=== PATIENT | female | born 1950 ===

== ENCOUNTER 2021-03-02 20:43 | Inpatient (IN) ==
[2021-03-02] MEDS ORDERED: SODIUM CHLORIDE 0.9% 1,000 ML IV STA (21:44)
[2021-03-02 22:57] LABS: Basophils % 0.2 % (0.0-0.8); Eosinophils % 0.5 % (0.00-10.9); Hematocrit 30.8 VOL% (35.7-47.0); Immature Granulocytes % 0.9 %; Immature Granulocytes Absolute 0.05 #; Lymphocytes # 0.4 10*3/uL (1.4-4.0); Lymphocytes % 7.3 % (21.3-54.2); Mean Corpuscular HGB Conc 32.5 GM/DL (32-36); Mean Corpuscular Volume 93.1 FL (87-102); Mean Platelet Volume 8.6 FL (9.6-12.0); Monocytes % 10.6 % (1.7-12.7); Neutrophils % 80.5 % (38.7-73.9); Platelet Count 252 T/CUMM (130-400); Red Blood Count 3.31 MC/CUMM (3.8-5.5); Red Cell Distribution Width 13.2 % (9.3-17.3); White Blood Count 5.9 T/CUMM (4-12)
[2021-03-02 23:30] LABS: Albumin 1.3 G/DL (3.4-5.0); Bilirubin,Total 0.5 MG/DL (0.2-1.0); Calcium 7.3 MG/DL (8.5-10.1); Osmolality,Calculated 262.2 MOS/KG (273-304); Potassium 5.2 MMOL/L (3.5-5.1); Total Protein 5.7 G/DL (6.4-8.2)
[2021-03-03 00:03] LABS: Sedimentation Rate-Westergren 77 MM/HR (0-30)
[2021-03-03 00:12] LABS: Eosinophils 1 % (0-10); Lymphocytes 2 % (20-55); Platelet Estimate Normal; Segmented Neutrophils 91 % (50-85); Total Cells Counted 100
[2021-03-03 00:13] LABS: Microcytosis Slight
[2021-03-03] MEDS ORDERED: GLUCAGON 1 MG VIAL IM PRN ×2 (00:14)
[2021-03-03] MEDS ORDERED: guaiFENesin/DM ER 600-30 MG TABLET PO PRN (00:14)
[2021-03-03] MEDS ORDERED: ZALEPLON 5 MG CAPSULE PO PRN (00:14)
[2021-03-03] MEDS ORDERED: ONDANSETRON 4 MG/2 ML VIAL IV PRN (00:14)
[2021-03-03] MEDS ORDERED: MORPHINE 4 MG/1 ML VIAL IV PRN (00:14)
[2021-03-03] MEDS ORDERED: ACETAMINOPHEN 325 MG TABLET PO PRN (00:14)
[2021-03-03] MEDS ORDERED: diphenhydrAMINE CAP 25 MG CAPSULE PO PRN (00:14)
[2021-03-03] MEDS ORDERED: hydrALAZINE 20 MG/1 ML VIAL IV PRN (00:14)
[2021-03-03] MEDS ORDERED: DEXTROSE 50% 25 GM/50 ML VIAL IV PRN ×2 (00:14)
[2021-03-03] MEDS ORDERED: DOCUSATE SODIUM 100 MG CAPSULE PO PRN (00:14)
[2021-03-03] MEDS ORDERED: NICOTINE 21 MG/24 HR PATCH TRANSDERM PRN (00:14)
[2021-03-03] MEDS: CEFEPIME 1,000 MG in SODIUM CHLORIDE 0.9% 100 ML IV SCH ×4 (00:19→23:31)
[2021-03-03] MEDS: CLINDAMYCIN INJ 600 MG/50 ML PREMIX IV SCH ×2 (01:30→08:33)
[2021-03-03] MEDS: SODIUM CHLORIDE 0.9% 1,000 ML IV SCH ×2 (03:09→18:05)
[2021-03-03] MEDS: VANCOMYCIN INJ 1,000 MG in SODIUM CHLORIDE 0.9% 250 ML IV SCH (03:18)
[2021-03-03 05:21] LABS: Basophils % 0.4 % (0.0-0.8); Eosinophils % 0.6 % (0.00-10.9); Hematocrit 32.4 VOL% (35.7-47.0); Hemoglobin 10.7 GM/DL (12.0-16.0); Immature Granulocytes % 1.1 %; Immature Granulocytes Absolute 0.05 #; Lymphocytes # 0.4 10*3/uL (1.4-4.0); Lymphocytes % 8.4 % (21.3-54.2); Mean Corpuscular Volume 92.6 FL (87-102); Mean Platelet Volume 8.7 FL (9.6-12.0); Monocytes % 11.6 % (1.7-12.7); Neutrophils % 77.9 % (38.7-73.9); Platelet Count 248 T/CUMM (130-400); Red Cell Distribution Width 13.2 % (9.3-17.3); White Blood Count 4.7 T/CUMM (4-12)
[2021-03-03 05:44] LABS: Band Neutrophils 1 % (0-10); Eosinophils 1 % (0-10); Lymphocytes 6 % (20-55); Microcytosis 1+; Platelet Estimate Adequate; Segmented Neutrophils 87 % (50-85); Total Cells Counted 100
[2021-03-03 05:51] LABS: Calcium 7.4 MG/DL (8.5-10.1); Osmolality,Calculated 266.8 MOS/KG (273-304); Potassium 5.4 MMOL/L (3.5-5.1)
[2021-03-03] MEDS ORDERED: SODIUM POLYSTYRENE SULFATE 15 GM/60 ML BOTTLE PO ONE (06:18)
[2021-03-03] MEDS ORDERED: SODIUM POLYSTYRENE SULFATE 15 GM/60 ML BOTTLE PO SCH (08:00)
[2021-03-03] MEDS: PANTOPRAZOLE 40 MG TABLET PO SCH (08:34)
[2021-03-03] MEDS: ENOXAPARIN 40 MG/0.4 ML SYRINGE SUBCUT SCH (09:22)
[2021-03-03] MEDS: INSULIN LISPRO 100 UNIT/ML SUBCUT SCH ×4 (10:06→21:47)
[2021-03-04] MEDS: VANCOMYCIN INJ 1,000 MG in SODIUM CHLORIDE 0.9% 250 ML IV SCH (01:16)
[2021-03-04 05:23] LABS: Basophils % 0.3 % (0.0-0.8); Eosinophils % 1.2 % (0.00-10.9); Hematocrit 30.4 VOL% (35.7-47.0); Immature Granulocytes % 1.5 %; Immature Granulocytes Absolute 0.05 #; Lymphocytes # 0.5 10*3/uL (1.4-4.0); Lymphocytes % 14.6 % (21.3-54.2); Mean Corpuscular HGB Conc 32.9 GM/DL (32-36); Mean Platelet Volume 8.6 FL (9.6-12.0); Monocytes % 17.5 % (1.7-12.7); Neutrophils % 64.9 % (38.7-73.9); Platelet Count 227 T/CUMM (130-400); Red Blood Count 3.27 MC/CUMM (3.8-5.5); Red Cell Distribution Width 13.2 % (9.3-17.3); White Blood Count 3.4 T/CUMM (4-12)
[2021-03-04 05:43] LABS: Calcium 7.4 MG/DL (8.5-10.1); Osmolality,Calculated 279.8 MOS/KG (273-304); Potassium 4.5 MMOL/L (3.5-5.1)
[2021-03-04 06:16] LABS: Eosinophils 2 % (0-10); Hypochromasia Slight; Lymphocytes 13 % (20-55); Microcytosis Slight; Platelet Estimate Adequate; Segmented Neutrophils 67 % (50-85); Total Cells Counted 100
[2021-03-04] MEDS: INSULIN LISPRO 100 UNIT/ML SUBCUT SCH ×4 (08:47→20:20)
[2021-03-04] MEDS: PANTOPRAZOLE 40 MG TABLET PO SCH (08:47)
[2021-03-04] MEDS: ENOXAPARIN 40 MG/0.4 ML SYRINGE SUBCUT SCH (08:49)
[2021-03-04] MEDS: CEFEPIME 1,000 MG in SODIUM CHLORIDE 0.9% 100 ML IV SCH ×3 (08:49→23:30)
[2021-03-04] MEDS: SODIUM CHLORIDE 0.9% 1,000 ML IV SCH ×3 (08:51→22:36)
[2021-03-04] MEDS ORDERED: BUPIVACAINE MPF 0.25% 30 ML VIAL ONE (11:41)
[2021-03-04] MEDS ORDERED: LIDOCAINE 1%/EPI INJ 20 ML VIAL ONE (11:41)
[2021-03-04] MEDS ORDERED: LACTATED RINGERS 1,000 ML IV SCH (12:00)
[2021-03-04] MEDS ORDERED: ONDANSETRON 4 MG/2 ML VIAL ONE (12:31)
[2021-03-04] MEDS ORDERED: PHENYLEPHRINE 1 MG/10 ML SYRINGE IV ONE (12:31)
[2021-03-04] MEDS ORDERED: fentaNYL 100 MCG/2 ML VIAL ONE (12:31)
[2021-03-04] MEDS ORDERED: SEVOFLURANE 1 UNIT/15 MINUTE INH ONE (12:31)
[2021-03-04] MEDS ORDERED: LIDOCAINE 2% 5 ML VIAL ONE (12:31)
[2021-03-04] MEDS ORDERED: propofoL 200 MG/20 ML VIAL IV ONE (12:31)
[2021-03-04] MEDS ORDERED: HYDROmorphone 2 MG/1 ML VIAL ONE (13:09)
[2021-03-04] MEDS: HYDROmorphone 2 MG/1 ML VIAL IV PRN ×4 (13:10→13:25)
[2021-03-04] MEDS ORDERED: ONDANSETRON 4 MG/2 ML VIAL IV PRN (13:17)
[2021-03-04] MEDS: SIMVASTATIN 40 MG TABLET PO SCH (20:21)
[2021-03-05 00:52] LABS: Basophils % 0.4 % (0.0-0.8); Eosinophils % 0.4 % (0.00-10.9); Hematocrit 32.2 VOL% (35.7-47.0); Hemoglobin 10.2 GM/DL (12.0-16.0); Immature Granulocytes % 1.7 %; Immature Granulocytes Absolute 0.08 #; Lymphocytes # 0.5 10*3/uL (1.4-4.0); Lymphocytes % 9.5 % (21.3-54.2); Mean Corpuscular HGB Conc 31.7 GM/DL (32-36); Mean Corpuscular Volume 94.4 FL (87-102); Mean Platelet Volume 8.5 FL (9.6-12.0); Monocytes % 12.6 % (1.7-12.7); Neutrophils % 75.4 % (38.7-73.9); Platelet Count 206 T/CUMM (130-400); Red Blood Count 3.41 MC/CUMM (3.8-5.5); Red Cell Distribution Width 13.3 % (9.3-17.3); White Blood Count 4.8 T/CUMM (4-12)
[2021-03-05 01:05] LABS: Calcium 7.6 MG/DL (8.5-10.1); Osmolality,Calculated 280.5 MOS/KG (273-304); Potassium 4.4 MMOL/L (3.5-5.1)
[2021-03-05] MEDS: VANCOMYCIN INJ 1,000 MG in SODIUM CHLORIDE 0.9% 250 ML IV SCH (01:30)
[2021-03-05 01:38] LABS: Band Neutrophils 3 % (0-10); Eosinophils 1 % (0-10); Lymphocytes 9 % (20-55); Metamyelocytes 1 %; Segmented Neutrophils 81 % (50-85); Total Cells Counted 100
[2021-03-05 01:39] LABS: Hypochromasia 1+; Platelet Estimate Normal
[2021-03-05] MEDS: INSULIN LISPRO 100 UNIT/ML SUBCUT SCH ×4 (08:18→19:59)
[2021-03-05] MEDS: ENOXAPARIN 40 MG/0.4 ML SYRINGE SUBCUT SCH (09:18)
[2021-03-05] MEDS: hydrALAZINE 25 MG TABLET PO SCH (09:18)
[2021-03-05] MEDS: amLODIPine 5 MG TABLET PO SCH (09:18)
[2021-03-05] MEDS: CEFEPIME 1,000 MG in SODIUM CHLORIDE 0.9% 100 ML IV SCH ×3 (09:19→23:17)
[2021-03-05] MEDS: SODIUM CHLORIDE 0.9% 1,000 ML IV SCH ×2 (09:29→20:02)
[2021-03-05] MEDS: MORPHINE 4 MG/1 ML VIAL IV PRN (10:35)
[2021-03-05] MEDS: SODIUM HYPOCHLORITE 0.25% IRRIG 473 ML BOTTLE TOP SCH (11:30)
[2021-03-05] MEDS: SIMVASTATIN 40 MG TABLET PO SCH (20:03)
[2021-03-06] MEDS: SODIUM CHLORIDE 0.9% 1,000 ML IV SCH ×2 (00:10→12:38)
[2021-03-06] MEDS: VANCOMYCIN INJ 1,000 MG in SODIUM CHLORIDE 0.9% 250 ML IV SCH (00:11)
[2021-03-06 04:58] LABS: Basophils % 0.5 % (0.0-0.8); Eosinophils # 0.1 10*3/uL (0.0-0.87); Immature Granulocytes % 2.8 %; Immature Granulocytes Absolute 0.12 #; Lymphocytes # 0.9 10*3/uL (1.4-4.0); Lymphocytes % 21.1 % (21.3-54.2); Mean Corpuscular HGB Conc 31.5 GM/DL (32-36); Mean Corpuscular Volume 94.9 FL (87-102); Mean Platelet Volume 9.1 FL (9.6-12.0); Monocytes % 13.9 % (1.7-12.7); Neutrophils % 58.7 % (38.7-73.9); Platelet Count 181 T/CUMM (130-400); Red Blood Count 2.74 MC/CUMM (3.8-5.5); Red Cell Distribution Width 13.5 % (9.3-17.3); White Blood Count 4.3 T/CUMM (4-12)
[2021-03-06 05:24] LABS: Albumin 1.1 G/DL (3.4-5.0); Bilirubin,Total 0.6 MG/DL (0.2-1.0); Calcium 7.5 MG/DL (8.5-10.1); Osmolality,Calculated 278.7 MOS/KG (273-304); Potassium 4.2 MMOL/L (3.5-5.1); Total Protein 5.1 G/DL (6.4-8.2)
[2021-03-06 05:28] LABS: Hemoglobin 8.2 GM/DL (12.0-16.0)
[2021-03-06 05:32] LABS: Band Neutrophils 1 % (0-10); Eosinophils 4 % (0-10); Hypochromasia Slight; Lymphocytes 13 % (20-55); Platelet Estimate Normal; Segmented Neutrophils 75 % (50-85); Total Cells Counted 100
[2021-03-06] MEDS: INSULIN LISPRO 100 UNIT/ML SUBCUT SCH ×4 (07:49→20:19)
[2021-03-06] MEDS: CEFEPIME 1,000 MG in SODIUM CHLORIDE 0.9% 100 ML IV SCH ×3 (08:49→23:07)
[2021-03-06] MEDS: amLODIPine 5 MG TABLET PO SCH (08:50)
[2021-03-06] MEDS: ENOXAPARIN 40 MG/0.4 ML SYRINGE SUBCUT SCH (08:50)
[2021-03-06] MEDS: SODIUM HYPOCHLORITE 0.25% IRRIG 473 ML BOTTLE TOP SCH (08:50)
[2021-03-06] MEDS: hydrALAZINE 25 MG TABLET PO SCH (08:50)
[2021-03-06] MEDS: MORPHINE 4 MG/1 ML VIAL IV PRN (08:50)
[2021-03-06] MEDS ORDERED: SODIUM HYPOCHLORITE 0.25% IRRIG 473 ML BOTTLE TOP SCH (09:00)
[2021-03-06] MEDS: SIMVASTATIN 40 MG TABLET PO SCH (20:24)
[2021-03-07] MEDS: SODIUM CHLORIDE 0.9% 1,000 ML IV SCH ×2 (04:55→22:43)
[2021-03-07 06:42] LABS: Basophils % 0.2 % (0.0-0.8); Eosinophils # 0.1 10*3/uL (0.0-0.87); Eosinophils % 1.8 % (0.00-10.9); Hematocrit 24.4 VOL% (35.7-47.0); Hemoglobin 7.8 GM/DL (12.0-16.0); Immature Granulocytes % 3.1 %; Immature Granulocytes Absolute 0.14 #; Lymphocytes # 0.7 10*3/uL (1.4-4.0); Lymphocytes % 16.3 % (21.3-54.2); Mean Corpuscular Volume 93.8 FL (87-102); Mean Platelet Volume 9.5 FL (9.6-12.0); Monocytes % 14.1 % (1.7-12.7); Neutrophils % 64.5 % (38.7-73.9); Platelet Count 177 T/CUMM (130-400); Red Cell Distribution Width 13.3 % (9.3-17.3); White Blood Count 4.5 T/CUMM (4-12)
[2021-03-07 06:56] LABS: Calcium 7.5 MG/DL (8.5-10.1); Osmolality,Calculated 276.7 MOS/KG (273-304); Potassium 4.5 MMOL/L (3.5-5.1)
[2021-03-07 07:13] LABS: Eosinophils 1 % (0-10); Hypochromasia 2+; Lymphocytes 12 % (20-55); Microcytosis 1+; Nucleated Red Blood Cells 1 (0-5); Platelet Estimate Adequate; Segmented Neutrophils 71 % (50-85); Total Cells Counted 100
[2021-03-07] MEDS ORDERED: CLINDAMYCIN INJ 900 MG/50 ML PREMIX IV ONE (09:20)
[2021-03-07] MEDS ORDERED: propofoL 200 MG/20 ML VIAL IV ONE (10:21)
[2021-03-07] MEDS ORDERED: LIDOCAINE 2% 5 ML VIAL ONE (10:21)
[2021-03-07] MEDS ORDERED: fentaNYL 100 MCG/2 ML VIAL ONE (10:21)
[2021-03-07] MEDS ORDERED: MIDAZOLAM 2 MG/2 ML VIAL ONE (10:21)
[2021-03-07] MEDS: INSULIN LISPRO 100 UNIT/ML SUBCUT SCH ×4 (10:45→20:59)
[2021-03-07] MEDS: ENOXAPARIN 40 MG/0.4 ML SYRINGE SUBCUT SCH (10:45)
[2021-03-07] MEDS: SODIUM HYPOCHLORITE 0.25% IRRIG 473 ML BOTTLE TOP SCH (10:45)
[2021-03-07] MEDS: hydrALAZINE 25 MG TABLET PO SCH (10:45)
[2021-03-07] MEDS: amLODIPine 5 MG TABLET PO SCH (10:46)
[2021-03-07] MEDS ORDERED: ROCURONIUM 50 MG/5 ML VIAL IV ONE (10:51)
[2021-03-07] MEDS ORDERED: SUCCINYLCHOLINE 200 MG/10 ML VIAL ONE (10:51)
[2021-03-07] MEDS ORDERED: LACTATED RINGERS 1,000 ML IV SCH (11:00)
[2021-03-07] MEDS: CEFEPIME 1,000 MG in SODIUM CHLORIDE 0.9% 100 ML IV SCH (11:20)
[2021-03-07] MEDS ORDERED: ePHEDrine 50 MG/ML VIAL ONE (11:25)
[2021-03-07] MEDS ORDERED: ONDANSETRON 4 MG/2 ML VIAL ONE (11:29)
[2021-03-07] MEDS ORDERED: SEVOFLURANE 1 UNIT/15 MINUTE INH ONE ×3 (11:29→11:48)
[2021-03-07] MEDS ORDERED: HYDROmorphone 2 MG/1 ML VIAL ONE (11:56)
[2021-03-07] MEDS ORDERED: ONDANSETRON 4 MG/2 ML VIAL IV PRN (11:58)
[2021-03-07] MEDS: HYDROmorphone 2 MG/1 ML VIAL IV PRN ×4 (12:02→12:17)
[2021-03-07] MEDS ORDERED: MEPERIDINE 50 MG/1 ML VIAL IV ONE (12:23)
[2021-03-07] MEDS ORDERED: MEPERIDINE 25 MG/1 ML VIAL ONE (12:24)
[2021-03-07 13:39] LABS: Basophils % 0.2 % (0.0-0.8); Eosinophils # 0.1 10*3/uL (0.0-0.87); Eosinophils % 1.3 % (0.00-10.9); Hematocrit 27.4 VOL% (35.7-47.0); Hemoglobin 9.1 GM/DL (12.0-16.0); Immature Granulocytes % 2.7 %; Immature Granulocytes Absolute 0.17 #; Lymphocytes # 0.9 10*3/uL (1.4-4.0); Lymphocytes % 13.5 % (21.3-54.2); Mean Corpuscular HGB Conc 33.2 GM/DL (32-36); Mean Corpuscular Volume 93.5 FL (87-102); Mean Platelet Volume 9.6 FL (9.6-12.0); Monocytes % 9.2 % (1.7-12.7); NRBC # 0.02 10*3/uL; Neutrophils % 73.1 % (38.7-73.9); Platelet Count 150 T/CUMM (130-400); Red Blood Count 2.93 MC/CUMM (3.8-5.5); Red Cell Distribution Width 13.3 % (9.3-17.3); White Blood Count 6.3 T/CUMM (4-12)
[2021-03-07 14:16] LABS: Band Neutrophils 7 % (0-10); Eosinophils 1 % (0-10); Lymphocytes 6 % (20-55); Segmented Neutrophils 77 % (50-85); Total Cells Counted 100
[2021-03-07 14:17] LABS: Anisocytosis 1+; Atypical Lymphocytes Few; Macrocytosis 1+; Microcytosis Slight; Platelet Estimate Adequate
[2021-03-07] MEDS: cefTRIAXone 1,000 MG in SODIUM CHLORIDE 0.9% 100 ML IV SCH (15:12)
[2021-03-07] MEDS: SIMVASTATIN 40 MG TABLET PO SCH (20:59)
[2021-03-08] MEDS: SODIUM CHLORIDE 0.9% 1,000 ML IV SCH ×2 (04:01→08:30)
[2021-03-08 05:20] LABS: Basophils % 0.2 % (0.0-0.8); Eosinophils # 0.1 10*3/uL (0.0-0.87); Eosinophils % 2.4 % (0.00-10.9); Hematocrit 23.2 VOL% (35.7-47.0); Hemoglobin 7.5 GM/DL (12.0-16.0); Immature Granulocytes % 1.8 %; Immature Granulocytes Absolute 0.08 #; Lymphocytes # 0.8 10*3/uL (1.4-4.0); Lymphocytes % 18.2 % (21.3-54.2); Mean Corpuscular HGB Conc 32.3 GM/DL (32-36); Mean Corpuscular Volume 94.7 FL (87-102); Mean Platelet Volume 9.4 FL (9.6-12.0); Monocytes % 13.8 % (1.7-12.7); Neutrophils % 63.6 % (38.7-73.9); Platelet Count 159 T/CUMM (130-400); Red Blood Count 2.45 MC/CUMM (3.8-5.5); Red Cell Distribution Width 13.4 % (9.3-17.3); White Blood Count 4.6 T/CUMM (4-12)
[2021-03-08 05:33] LABS: Calcium 7.4 MG/DL (8.5-10.1); Osmolality,Calculated 275.5 MOS/KG (273-304); Potassium 4.3 MMOL/L (3.5-5.1)
[2021-03-08 06:08] LABS: Hypochromasia 1+; Microcytosis 1+; Platelet Estimate Adequate
[2021-03-08] MEDS: hydrALAZINE 25 MG TABLET PO SCH (08:27)
[2021-03-08] MEDS: SODIUM HYPOCHLORITE 0.25% IRRIG 473 ML BOTTLE TOP SCH (08:27)
[2021-03-08] MEDS: ENOXAPARIN 40 MG/0.4 ML SYRINGE SUBCUT SCH (08:27)
[2021-03-08] MEDS: amLODIPine 5 MG TABLET PO SCH (08:27)
[2021-03-08] MEDS: INSULIN LISPRO 100 UNIT/ML SUBCUT SCH ×4 (08:28→21:40)
[2021-03-08] MEDS: cefTRIAXone 1,000 MG in SODIUM CHLORIDE 0.9% 100 ML IV SCH (11:35)
[2021-03-08] MEDS: SIMVASTATIN 40 MG TABLET PO SCH (21:41)
[2021-03-09 05:58] LABS: Basophils % 0.4 % (0.0-0.8); Eosinophils # 0.1 10*3/uL (0.0-0.87); Eosinophils % 1.9 % (0.00-10.9); Hematocrit 24.8 VOL% (35.7-47.0); Hemoglobin 7.8 GM/DL (12.0-16.0); Immature Granulocytes % 2.3 %; Immature Granulocytes Absolute 0.12 #; Lymphocytes # 0.9 10*3/uL (1.4-4.0); Lymphocytes % 16.8 % (21.3-54.2); Mean Corpuscular HGB Conc 31.5 GM/DL (32-36); Mean Corpuscular Volume 94.7 FL (87-102); Mean Platelet Volume 9.3 FL (9.6-12.0); Monocytes % 10.6 % (1.7-12.7); Platelet Count 175 T/CUMM (130-400); Red Blood Count 2.62 MC/CUMM (3.8-5.5); Red Cell Distribution Width 13.6 % (9.3-17.3); White Blood Count 5.3 T/CUMM (4-12)
[2021-03-09 06:16] LABS: Folate 7.07 NG/ML (5.38-24.0)
[2021-03-09 06:18] LABS: % Iron Saturation 25.2 % (18-50); Ferritin 191.2 ng/ml (8-252)
[2021-03-09 06:33] LABS: Band Neutrophils 2 % (0-10); Eosinophils 5 % (0-10); Hypochromasia 1+; Lymphocytes 12 % (20-55); Microcytosis 1+; Platelet Estimate Adequate; Segmented Neutrophils 75 % (50-85); Total Cells Counted 100
[2021-03-09] MEDS: INSULIN LISPRO 100 UNIT/ML SUBCUT SCH ×4 (07:40→20:35)
[2021-03-09] MEDS ORDERED: POTASSIUM CHLORIDE 20 MEQ TABLET PO PRN (07:58)
[2021-03-09] MEDS: hydrALAZINE 25 MG TABLET PO SCH (09:25)
[2021-03-09] MEDS: amLODIPine 5 MG TABLET PO SCH (09:25)
[2021-03-09] MEDS: ENOXAPARIN 40 MG/0.4 ML SYRINGE SUBCUT SCH (09:25)
[2021-03-09] MEDS: SODIUM HYPOCHLORITE 0.25% IRRIG 473 ML BOTTLE TOP SCH (10:41)
[2021-03-09] MEDS: FERROUS SULFATE 325 MG TABLET PO SCH (11:12)
[2021-03-09] MEDS: cefTRIAXone 1,000 MG in SODIUM CHLORIDE 0.9% 100 ML IV SCH (13:02)
[2021-03-09] MEDS ORDERED: TUBERCULIN SKIN TEST 0.1 ML SYRINGE INTRADERM ONE (16:57)
[2021-03-09] MEDS: SIMVASTATIN 40 MG TABLET PO SCH (20:35)
[2021-03-10] MEDS ORDERED: BUPIVACAINE MPF 0.25% 30 ML VIAL ONE (06:35)
[2021-03-10] MEDS ORDERED: LIDOCAINE 1%/EPI INJ 20 ML VIAL ONE (06:36)
[2021-03-10] MEDS ORDERED: LIDOCAINE 2% 5 ML VIAL ONE (06:43)
[2021-03-10] MEDS ORDERED: fentaNYL 100 MCG/2 ML VIAL ONE (06:43)
[2021-03-10] MEDS ORDERED: propofoL 200 MG/20 ML VIAL IV ONE (06:43)
[2021-03-10] MEDS: INSULIN LISPRO 100 UNIT/ML SUBCUT SCH ×4 (07:21→20:54)
[2021-03-10] MEDS ORDERED: LACTATED RINGERS 1,000 ML IV SCH (07:30)
[2021-03-10] MEDS ORDERED: ONDANSETRON 4 MG/2 ML VIAL ONE (07:32)
[2021-03-10] MEDS ORDERED: PHENYLEPHRINE 1 MG/10 ML SYRINGE IV ONE (07:37)
[2021-03-10 07:39] LABS: Basophils % 0.4 % (0.0-0.8); Eosinophils # 0.1 10*3/uL (0.0-0.87); Hematocrit 23.5 VOL% (35.7-47.0); Hemoglobin 7.5 GM/DL (12.0-16.0); Immature Granulocytes % 3.1 %; Immature Granulocytes Absolute 0.15 #; Lymphocytes # 0.9 10*3/uL (1.4-4.0); Lymphocytes % 18.6 % (21.3-54.2); Mean Corpuscular HGB Conc 31.9 GM/DL (32-36); Mean Corpuscular Volume 95.1 FL (87-102); Mean Platelet Volume 9.8 FL (9.6-12.0); Monocytes % 14.5 % (1.7-12.7); Neutrophils % 61.4 % (38.7-73.9); Platelet Count 181 T/CUMM (130-400); Red Blood Count 2.47 MC/CUMM (3.8-5.5); Red Cell Distribution Width 13.6 % (9.3-17.3); White Blood Count 4.9 T/CUMM (4-12)
[2021-03-10 08:08] LABS: Calcium 7.7 MG/DL (8.5-10.1); Osmolality,Calculated 275.5 MOS/KG (273-304); Potassium 3.8 MMOL/L (3.5-5.1)
[2021-03-10] MEDS ORDERED: SODIUM CHLORIDE 0.9% 1,000 ML IV PRN (08:33)
[2021-03-10] MEDS: lisinopriL 20 MG TABLET PO SCH (09:13)
[2021-03-10] MEDS: hydrALAZINE 25 MG TABLET PO SCH (09:13)
[2021-03-10] MEDS: FERROUS SULFATE 325 MG TABLET PO SCH (09:13)
[2021-03-10] MEDS: ENOXAPARIN 40 MG/0.4 ML SYRINGE SUBCUT SCH (09:13)
[2021-03-10] MEDS: amLODIPine 5 MG TABLET PO SCH (09:13)
[2021-03-10] MEDS: SODIUM HYPOCHLORITE 0.25% IRRIG 473 ML BOTTLE TOP SCH (09:14)
[2021-03-10] MEDS ORDERED: GLUCAGON 1 MG VIAL IM PRN (09:18)
[2021-03-10] MEDS ORDERED: DEXTROSE 50% 25 GM/50 ML VIAL IV PRN (09:18)
[2021-03-10] MEDS: MORPHINE 4 MG/1 ML VIAL IV PRN ×2 (10:55→20:46)
[2021-03-10] MEDS: cefTRIAXone 1,000 MG in SODIUM CHLORIDE 0.9% 100 ML IV SCH (11:20)
[2021-03-10] MEDS: SIMVASTATIN 40 MG TABLET PO SCH (20:31)
[2021-03-10 21:44] LABS: Hematocrit 29.7 VOL% (35.7-47.0); Hemoglobin 9.9 GM/DL (12.0-16.0)
[2021-03-11 05:17] LABS: Basophils % 0.5 % (0.0-0.8); Eosinophils # 0.2 10*3/uL (0.0-0.87); Eosinophils % 2.9 % (0.00-10.9); Hematocrit 34.1 VOL% (35.7-47.0); Hemoglobin 10.9 GM/DL (12.0-16.0); Immature Granulocytes Absolute 0.11 #; Lymphocytes # 0.9 10*3/uL (1.4-4.0); Lymphocytes % 16.7 % (21.3-54.2); Mean Corpuscular Volume 94.7 FL (87-102); Mean Platelet Volume 9.6 FL (9.6-12.0); Monocytes % 12.9 % (1.7-12.7); Platelet Count 202 T/CUMM (130-400); Red Cell Distribution Width 13.5 % (9.3-17.3); White Blood Count 5.5 T/CUMM (4-12)
[2021-03-11] MEDS: ENOXAPARIN 40 MG/0.4 ML SYRINGE SUBCUT SCH (08:24)
[2021-03-11] MEDS: INSULIN LISPRO 100 UNIT/ML SUBCUT SCH ×4 (08:24→21:35)
[2021-03-11] MEDS: lisinopriL 20 MG TABLET PO SCH (08:25)
[2021-03-11] MEDS: hydrALAZINE 25 MG TABLET PO SCH (08:25)
[2021-03-11] MEDS: SODIUM HYPOCHLORITE 0.25% IRRIG 473 ML BOTTLE TOP SCH (08:25)
[2021-03-11] MEDS: FERROUS SULFATE 325 MG TABLET PO SCH (08:25)
[2021-03-11] MEDS: amLODIPine 5 MG TABLET PO SCH (08:25)
[2021-03-11] MEDS: cefTRIAXone 1,000 MG in SODIUM CHLORIDE 0.9% 100 ML IV SCH (11:36)
[2021-03-11] MEDS: MORPHINE 4 MG/1 ML VIAL IV PRN ×2 (12:49→21:42)
[2021-03-11] MEDS: SIMVASTATIN 40 MG TABLET PO SCH (21:36)
[2021-03-12 05:58] LABS: Basophils % 0.5 % (0.0-0.8); Eosinophils # 0.2 10*3/uL (0.0-0.87); Eosinophils % 2.7 % (0.00-10.9); Hematocrit 31.2 VOL% (35.7-47.0); Immature Granulocytes % 1.5 %; Immature Granulocytes Absolute 0.08 #; Lymphocytes # 1.1 10*3/uL (1.4-4.0); Lymphocytes % 20.4 % (21.3-54.2); Mean Corpuscular HGB Conc 32.1 GM/DL (32-36); Mean Platelet Volume 9.9 FL (9.6-12.0); Monocytes % 14.8 % (1.7-12.7); Neutrophils % 60.1 % (38.7-73.9); Platelet Count 190 T/CUMM (130-400); Red Blood Count 3.32 MC/CUMM (3.8-5.5); Red Cell Distribution Width 13.7 % (9.3-17.3); White Blood Count 5.5 T/CUMM (4-12)
[2021-03-12 06:19] LABS: Calcium 7.6 MG/DL (8.5-10.1); Osmolality,Calculated 272.8 MOS/KG (273-304); Potassium 3.7 MMOL/L (3.5-5.1)
[2021-03-12] MEDS: INSULIN LISPRO 100 UNIT/ML SUBCUT SCH ×4 (07:56→21:48)
[2021-03-12] MEDS: MORPHINE 4 MG/1 ML VIAL IV PRN ×3 (08:23→20:39)
[2021-03-12] MEDS: lisinopriL 20 MG TABLET PO SCH (08:24)
[2021-03-12] MEDS: FERROUS SULFATE 325 MG TABLET PO SCH (08:24)
[2021-03-12] MEDS: ENOXAPARIN 40 MG/0.4 ML SYRINGE SUBCUT SCH (08:24)
[2021-03-12] MEDS: hydrALAZINE 25 MG TABLET PO SCH (08:24)
[2021-03-12] MEDS: amLODIPine 5 MG TABLET PO SCH (08:24)
[2021-03-12] MEDS: SODIUM HYPOCHLORITE 0.25% IRRIG 473 ML BOTTLE TOP SCH (08:27)
[2021-03-12] MEDS: cefTRIAXone 1,000 MG in SODIUM CHLORIDE 0.9% 100 ML IV SCH (12:05)
[2021-03-12] MEDS: SIMVASTATIN 40 MG TABLET PO SCH (20:40)
[2021-03-13] MEDS: MORPHINE 4 MG/1 ML VIAL IV PRN ×3 (02:16→22:16)
[2021-03-13] MEDS: INSULIN LISPRO 100 UNIT/ML SUBCUT SCH ×4 (08:03→22:02)
[2021-03-13] MEDS: FERROUS SULFATE 325 MG TABLET PO SCH (09:54)
[2021-03-13] MEDS: hydrALAZINE 25 MG TABLET PO SCH (09:54)
[2021-03-13] MEDS: lisinopriL 20 MG TABLET PO SCH (09:54)
[2021-03-13] MEDS: amLODIPine 5 MG TABLET PO SCH (09:54)
[2021-03-13] MEDS: ENOXAPARIN 40 MG/0.4 ML SYRINGE SUBCUT SCH (09:59)
[2021-03-13] MEDS: SODIUM HYPOCHLORITE 0.25% IRRIG 473 ML BOTTLE TOP SCH (11:29)
[2021-03-13] MEDS: cefTRIAXone 1,000 MG in SODIUM CHLORIDE 0.9% 100 ML IV SCH (12:17)
[2021-03-13] MEDS ORDERED: INSULIN GLARGINE 100 UNIT/ML SUBCUT SCH (21:00)
[2021-03-13] MEDS: SIMVASTATIN 40 MG TABLET PO SCH (22:16)
[2021-03-14] MEDS: MORPHINE 4 MG/1 ML VIAL IV PRN ×2 (02:10→10:24)
[2021-03-14 04:42] LABS: Basophils % 0.6 % (0.0-0.8); Eosinophils # 0.1 10*3/uL (0.0-0.87); Hematocrit 29.7 VOL% (35.7-47.0); Hemoglobin 9.4 GM/DL (12.0-16.0); Immature Granulocytes % 0.6 %; Immature Granulocytes Absolute 0.03 #; Lymphocytes # 1.1 10*3/uL (1.4-4.0); Lymphocytes % 22.9 % (21.3-54.2); Mean Corpuscular HGB Conc 31.6 GM/DL (32-36); Mean Corpuscular Volume 95.5 FL (87-102); Mean Platelet Volume 9.4 FL (9.6-12.0); Monocytes % 15.3 % (1.7-12.7); Neutrophils % 58.6 % (38.7-73.9); Platelet Count 203 T/CUMM (130-400); Red Blood Count 3.11 MC/CUMM (3.8-5.5); Red Cell Distribution Width 14.2 % (9.3-17.3)
[2021-03-14 05:03] LABS: Calcium 7.3 MG/DL (8.5-10.1); Osmolality,Calculated 279.4 MOS/KG (273-304); Potassium 3.6 MMOL/L (3.5-5.1)
[2021-03-14 05:14] LABS: Eosinophils 1 % (0-10); Lymphocytes 11 % (20-55); Segmented Neutrophils 80 % (50-85); Total Cells Counted 100
[2021-03-14 05:15] LABS: Hypochromasia Slight; Platelet Estimate Normal
[2021-03-14] MEDS: hydrALAZINE 25 MG TABLET PO SCH (10:14)
[2021-03-14] MEDS: INSULIN LISPRO 100 UNIT/ML SUBCUT SCH ×3 (10:14→15:46)
[2021-03-14] MEDS: FERROUS SULFATE 325 MG TABLET PO SCH (10:15)
[2021-03-14] MEDS: amLODIPine 5 MG TABLET PO SCH (10:15)
[2021-03-14] MEDS: SODIUM HYPOCHLORITE 0.25% IRRIG 473 ML BOTTLE TOP SCH (10:15)
[2021-03-14] MEDS: lisinopriL 20 MG TABLET PO SCH (10:15)
[2021-03-14] MEDS: ENOXAPARIN 40 MG/0.4 ML SYRINGE SUBCUT SCH (10:15)
[2021-03-14 10:22] LABS: PT Patient Result 11.4 SECS (10.5-12.0)
[2021-03-14] MEDS: cefTRIAXone 1,000 MG in SODIUM CHLORIDE 0.9% 100 ML IV SCH (13:38)
[2021-03-14] MEDS ORDERED: BISACODYL 10 MG SUPP RECTAL PRN (14:22)
[2021-03-14 17:24] VITALS: BP 148/58
== END 2021-03-14 17:10 | DRG 623 ==
LOC: EDBD → N.ED 20:43 → SUATTDRO 03-03 00:14 → N.EDINP 03-03 00:14 → N.3E 03-03 01:52
PROVIDERS: ADMIT Emergency Medicine; ATTEND Internal Medicine

== ENCOUNTER 2021-07-12 06:06 | Inpatient (IN) ==
[2021-07-11 15:28] LABS: Basophils % 0.3 % (0.0-0.8); Eosinophils # 0.1 10*3/uL (0.0-0.87); Eosinophils % 0.5 % (0.00-10.9); Hematocrit 30.3 VOL% (35.7-47.0); Hemoglobin 10.1 GM/DL (12.0-16.0); Immature Granulocytes % 0.6 %; Immature Granulocytes Absolute 0.07 #; Lymphocytes # 1.2 10*3/uL (1.4-4.0); Lymphocytes % 10.4 % (21.3-54.2); Mean Corpuscular HGB Conc 33.3 GM/DL (32-36); Mean Corpuscular Volume 92.1 FL (87-102); Mean Platelet Volume 9.1 FL (9.6-12.0); Monocytes % 8.2 % (1.7-12.7); Platelet Count 359 T/CUMM (130-400); Red Blood Count 3.29 MC/CUMM (3.8-5.5); Red Cell Distribution Width 11.9 % (9.3-17.3); White Blood Count 11.8 T/CUMM (4-12)
[2021-07-11 15:37] LABS: PT Patient Result 11.1 SECS (10.5-12.0); Partial Thromboplastin Time 29.3 SECS (23.8-32.1)
[2021-07-11 15:42] LABS: Calcium 8.6 MG/DL (8.5-10.1); Osmolality,Calculated 285.8 MOS/KG (273-304); Potassium 4.2 MMOL/L (3.5-5.1)
[2021-07-12] MEDS ORDERED: INSULIN REGULAR 100 UNIT/ML ONE (08:07)
[2021-07-12] MEDS ORDERED: ceFAZolin 1,000 MG VIAL ONE (08:07)
[2021-07-12] MEDS ORDERED: INSULIN REGULAR 100 UNIT/ML IV ONE (08:25)
[2021-07-12] MEDS ORDERED: SEVOFLURANE 1 UNIT/15 MINUTE INH ONE (08:48)
[2021-07-12] MEDS ORDERED: propofoL 200 MG/20 ML VIAL IV ONE (08:48)
[2021-07-12] MEDS ORDERED: LIDOCAINE 2% 5 ML VIAL ONE (08:48)
[2021-07-12] MEDS ORDERED: LIDOCAINE 1% 20 ML VIAL ONE (08:49)
[2021-07-12] MEDS ORDERED: fentaNYL 100 MCG/2 ML VIAL ONE (08:49)
[2021-07-12] MEDS: SODIUM CHLORIDE 0.9% 1,000 ML IV SCH (09:03)
[2021-07-12] MEDS ORDERED: FAMOTIDINE 20 MG/2 ML VIAL IV ONE (09:24)
[2021-07-12] MEDS ORDERED: ONDANSETRON 4 MG/2 ML VIAL ONE (10:18)
[2021-07-12] MEDS ORDERED: PHENYLEPHRINE 1 MG/10 ML SYRINGE IV ONE (10:19)
[2021-07-12] MEDS ORDERED: ACETAMINOPHEN 325 MG TABLET PO PRN (10:20)
[2021-07-12] MEDS ORDERED: HYDROmorphone 2 MG/1 ML VIAL IV PRN (10:20)
[2021-07-12] MEDS ORDERED: DEXTROSE 50% 25 GM/50 ML VIAL IV PRN (10:20)
[2021-07-12] MEDS ORDERED: GLUCAGON 1 MG VIAL IM PRN (10:20)
[2021-07-12] MEDS ORDERED: ONDANSETRON 4 MG/2 ML VIAL IV PRN (10:20)
[2021-07-12] MEDS: INSULIN REGULAR 100 UNIT/ML SUBCUT SCH ×3 (16:35→22:06)
[2021-07-12] MEDS: PIPERACILLIN/TAZOBACTAM 3,375 MG in SODIUM CHLORIDE 0.9% 100 ML IV SCH ×2 (16:51→23:55)
[2021-07-12] MEDS: VANCOMYCIN INJ 1,000 MG in SODIUM CHLORIDE 0.9% 250 ML IV SCH (22:03)
[2021-07-12] MEDS: DOCUSATE SODIUM 100 MG CAPSULE PO SCH (22:05)
[2021-07-12] MEDS: INSULIN GLARGINE 100 UNIT/ML SUBCUT SCH (22:06)
[2021-07-13 05:14] LABS: Basophils % 0.3 % (0.0-0.8); Eosinophils # 0.2 10*3/uL (0.0-0.87); Eosinophils % 2.7 % (0.00-10.9); Hematocrit 26.8 VOL% (35.7-47.0); Hemoglobin 8.7 GM/DL (12.0-16.0); Immature Granulocytes % 0.7 %; Immature Granulocytes Absolute 0.06 #; Lymphocytes # 1.7 10*3/uL (1.4-4.0); Lymphocytes % 19.2 % (21.3-54.2); Mean Corpuscular HGB Conc 32.5 GM/DL (32-36); Mean Corpuscular Volume 94.4 FL (87-102); Mean Platelet Volume 9.1 FL (9.6-12.0); Monocytes % 10.5 % (1.7-12.7); Neutrophils % 66.6 % (38.7-73.9); Platelet Count 345 T/CUMM (130-400); Red Blood Count 2.84 MC/CUMM (3.8-5.5); White Blood Count 8.8 T/CUMM (4-12)
[2021-07-13 05:20] LABS: Calcium 8.1 MG/DL (8.5-10.1); Potassium 4.2 MMOL/L (3.5-5.1)
[2021-07-13] MEDS: lisinopriL 20 MG TABLET PO SCH (08:28)
[2021-07-13] MEDS: DOCUSATE SODIUM 100 MG CAPSULE PO SCH ×2 (08:28→22:00)
[2021-07-13] MEDS: INSULIN REGULAR 100 UNIT/ML SUBCUT SCH ×4 (08:28→22:16)
[2021-07-13] MEDS: CLOPIDOGREL 75 MG TABLET PO SCH (08:28)
[2021-07-13] MEDS: PANTOPRAZOLE 40 MG TABLET PO SCH (08:28)
[2021-07-13] MEDS: hydrALAZINE 25 MG TABLET PO SCH (08:29)
[2021-07-13] MEDS: PIPERACILLIN/TAZOBACTAM 3,375 MG in SODIUM CHLORIDE 0.9% 100 ML IV SCH ×2 (08:29→15:33)
[2021-07-13] MEDS: amLODIPine 5 MG TABLET PO SCH (08:29)
[2021-07-13] MEDS: SODIUM CHLORIDE 0.9% 1,000 ML IV SCH (09:27)
[2021-07-13] MEDS: VANCOMYCIN INJ 1,000 MG in SODIUM CHLORIDE 0.9% 250 ML IV SCH (23:00)
[2021-07-13] MEDS: INSULIN GLARGINE 100 UNIT/ML SUBCUT SCH (23:01)
[2021-07-14] MEDS: PIPERACILLIN/TAZOBACTAM 3,375 MG in SODIUM CHLORIDE 0.9% 100 ML IV SCH ×3 (01:00→16:36)
[2021-07-14] MEDS: INSULIN REGULAR 100 UNIT/ML SUBCUT SCH ×4 (07:45→21:45)
[2021-07-14] MEDS: amLODIPine 5 MG TABLET PO SCH (09:12)
[2021-07-14] MEDS: PANTOPRAZOLE 40 MG TABLET PO SCH (09:12)
[2021-07-14] MEDS: DOCUSATE SODIUM 100 MG CAPSULE PO SCH ×2 (09:12→20:00)
[2021-07-14] MEDS: lisinopriL 20 MG TABLET PO SCH (09:12)
[2021-07-14] MEDS: CLOPIDOGREL 75 MG TABLET PO SCH (09:13)
[2021-07-14] MEDS: hydrALAZINE 25 MG TABLET PO SCH (09:13)
[2021-07-14] MEDS: SODIUM CHLORIDE 0.9% 1,000 ML IV SCH (09:18)
[2021-07-14] MEDS: SODIUM HYPOCHLORITE 0.25% IRRIG 473 ML BOTTLE TOP SCH (12:01)
[2021-07-14] MEDS: VANCOMYCIN INJ 1,000 MG in SODIUM CHLORIDE 0.9% 250 ML IV SCH (20:00)
[2021-07-14] MEDS: INSULIN GLARGINE 100 UNIT/ML SUBCUT SCH (21:45)
[2021-07-15] MEDS: PIPERACILLIN/TAZOBACTAM 3,375 MG in SODIUM CHLORIDE 0.9% 100 ML IV SCH ×3 (00:40→15:52)
[2021-07-15 05:37] LABS: Basophils % 0.3 % (0.0-0.8); Eosinophils # 0.4 10*3/uL (0.0-0.87); Eosinophils % 5.4 % (0.00-10.9); Hematocrit 29.4 VOL% (35.7-47.0); Hemoglobin 9.5 GM/DL (12.0-16.0); Immature Granulocytes Absolute 0.08 #; Lymphocytes # 1.6 10*3/uL (1.4-4.0); Lymphocytes % 21.1 % (21.3-54.2); Mean Corpuscular HGB Conc 32.3 GM/DL (32-36); Mean Corpuscular Volume 95.1 FL (87-102); Mean Platelet Volume 8.9 FL (9.6-12.0); Monocytes % 8.5 % (1.7-12.7); Neutrophils % 63.7 % (38.7-73.9); Platelet Count 423 T/CUMM (130-400); Red Blood Count 3.09 MC/CUMM (3.8-5.5); White Blood Count 7.8 T/CUMM (4-12)
[2021-07-15] MEDS ORDERED: BUPIVACAINE MPF 0.25% 30 ML VIAL ONE (06:18)
[2021-07-15] MEDS ORDERED: LIDOCAINE 1% 50 ML VIAL ONE (06:18)
[2021-07-15 06:30] LABS: Calcium 8.4 MG/DL (8.5-10.1); Potassium 3.9 MMOL/L (3.5-5.1)
[2021-07-15] MEDS ORDERED: ONDANSETRON 4 MG/2 ML VIAL ONE (06:43)
[2021-07-15] MEDS ORDERED: LIDOCAINE 2% 5 ML VIAL ONE (06:43)
[2021-07-15] MEDS ORDERED: MIDAZOLAM 2 MG/2 ML VIAL ONE (06:43)
[2021-07-15] MEDS ORDERED: propofoL 200 MG/20 ML VIAL IV ONE (06:43)
[2021-07-15] MEDS ORDERED: fentaNYL 100 MCG/2 ML VIAL ONE (06:43)
[2021-07-15] MEDS ORDERED: ePHEDrine 50 MG/ML VIAL ONE (07:20)
[2021-07-15] MEDS ORDERED: LACTATED RINGERS 1,000 ML IV SCH (07:30)
[2021-07-15] MEDS ORDERED: SEVOFLURANE 1 UNIT/15 MINUTE INH ONE (07:37)
[2021-07-15] MEDS: DOCUSATE SODIUM 100 MG CAPSULE PO SCH ×2 (08:19→21:40)
[2021-07-15] MEDS: SODIUM HYPOCHLORITE 0.25% IRRIG 473 ML BOTTLE TOP SCH (08:19)
[2021-07-15] MEDS: INSULIN REGULAR 100 UNIT/ML SUBCUT SCH ×4 (08:19→21:40)
[2021-07-15] MEDS: hydrALAZINE 25 MG TABLET PO SCH (08:19)
[2021-07-15] MEDS: lisinopriL 20 MG TABLET PO SCH ×2 (08:20→12:07)
[2021-07-15] MEDS: CLOPIDOGREL 75 MG TABLET PO SCH (08:20)
[2021-07-15] MEDS: PANTOPRAZOLE 40 MG TABLET PO SCH (08:20)
[2021-07-15] MEDS: amLODIPine 5 MG TABLET PO SCH ×2 (08:20→12:07)
[2021-07-15] MEDS: SODIUM CHLORIDE 0.9% 1,000 ML IV SCH (14:51)
[2021-07-15] MEDS: VANCOMYCIN INJ 1,000 MG in SODIUM CHLORIDE 0.9% 250 ML IV SCH (21:40)
[2021-07-15] MEDS: INSULIN GLARGINE 100 UNIT/ML SUBCUT SCH (21:41)
[2021-07-16] MEDS: PIPERACILLIN/TAZOBACTAM 3,375 MG in SODIUM CHLORIDE 0.9% 100 ML IV SCH ×3 (00:10→17:36)
[2021-07-16] MEDS: PANTOPRAZOLE 40 MG TABLET PO SCH (09:40)
[2021-07-16] MEDS: amLODIPine 5 MG TABLET PO SCH (09:40)
[2021-07-16] MEDS: lisinopriL 20 MG TABLET PO SCH (09:40)
[2021-07-16] MEDS: CLOPIDOGREL 75 MG TABLET PO SCH (09:40)
[2021-07-16] MEDS: DOCUSATE SODIUM 100 MG CAPSULE PO SCH ×2 (09:40→20:56)
[2021-07-16] MEDS: hydrALAZINE 25 MG TABLET PO SCH (09:40)
[2021-07-16] MEDS: SODIUM HYPOCHLORITE 0.25% IRRIG 473 ML BOTTLE TOP SCH (09:43)
[2021-07-16] MEDS: SODIUM CHLORIDE 0.9% 1,000 ML IV SCH (09:55)
[2021-07-16] MEDS: INSULIN REGULAR 100 UNIT/ML SUBCUT SCH ×4 (09:55→20:57)
[2021-07-16] MEDS: VANCOMYCIN INJ 1,000 MG in SODIUM CHLORIDE 0.9% 250 ML IV SCH ×2 (12:13→23:51)
[2021-07-16] MEDS: INSULIN GLARGINE 100 UNIT/ML SUBCUT SCH (20:57)
[2021-07-17] MEDS: PIPERACILLIN/TAZOBACTAM 3,375 MG in SODIUM CHLORIDE 0.9% 100 ML IV SCH ×2 (01:20→12:25)
[2021-07-17] MEDS: INSULIN REGULAR 100 UNIT/ML SUBCUT SCH ×2 (07:38→12:22)
[2021-07-17] MEDS: CLOPIDOGREL 75 MG TABLET PO SCH (09:16)
[2021-07-17] MEDS: DOCUSATE SODIUM 100 MG CAPSULE PO SCH (09:16)
[2021-07-17] MEDS: hydrALAZINE 25 MG TABLET PO SCH (09:17)
[2021-07-17] MEDS: amLODIPine 5 MG TABLET PO SCH (09:17)
[2021-07-17] MEDS: PANTOPRAZOLE 40 MG TABLET PO SCH (09:17)
[2021-07-17] MEDS: lisinopriL 20 MG TABLET PO SCH (09:18)
[2021-07-17] MEDS: SODIUM HYPOCHLORITE 0.25% IRRIG 473 ML BOTTLE TOP SCH (09:18)
[2021-07-17] MEDS ORDERED: FLUCONAZOLE 150 MG TABLET PO ONE (09:20)
[2021-07-17 11:40] VITALS: BP 197/68
== END 2021-07-17 13:24 | disposition home or self-care (01) | DRG 240 ==
LOC: N.OR 06:06 → N.SDSINP 06:09 → N.3E 15:51
PROVIDERS: ADMIT Student in an Organized Health Care Education/Training Program; ATTEND Student in an Organized Health Care Education/Training Program